=== PATIENT | male | born 1980 | race Caucasian/White ===

== ENCOUNTER 2017-01-25 09:44 | Emergency (ER) | payer MEDICAID ==
--- NOTE | 2017-01-25 10:08 | ED Physician Chart ---
Chief Complaint/HPI - Patient Information Date Seen:: 01/25/17 Time Seen:: 10:00 Chief Complaint:: left flank pain and substernal chest pain History of Present Illness:: Patient awoke about 0100 this morning with 10 out of 10 left flank pain and 8/ 10 pleuritic substernal chest pain. Pleuritic chest pain is sharp in nature and does not radiate. Patient denies dysuria, recent upper respiratory tract infection, cough, fever, vomiting, diarrhea. Patient states that his left flank pain is constant and is not relieved either by remaining still or moving around. Allergies:: Allergies Allergy/AdvReac Type Severity Reaction Status Date / Time No Known Allergies Allergy Verified 01/25/17 09:56 Historian:: Patient Review:: Nurse's Note Reviewed Review of Systems - Review of Systems General/Constitutional: No fever, No chills Skin: No skin lesions Head: No headache Eyes: No loss of vision ENT: No earache, No nasal drainage, No sore throat Neck: No neck pain, No swelling Cardio Vascular: Chest pain Pulmonary: No SOB, No cough GI: No nausea, No vomiting, No diarrhea G/U: No dysuria Musculoskeletal: No bone or joint pain Endocrine: No polyuria, No polydipsia Psychiatric: No prior psych history Hematopoietic: No bruising, No lymphadenopathy Allergic/Immuno: No urticaria, No angioedema Neurological: No syncope Family Medical History - Family Member Mother Ethnicity: Physical Exam - Physical Examination General/Constitutional: Well-developed, well-nourished, Alert Other Gen/Cons comments:: mild distress Head: Atraumatic Eyes: Lids, conjuctiva normal, PERRL Skin: Nl inspection, No rash, No skin lesions, No ecchymosis, Well hydrated, No lymphadenopathy ENMT: External ears, nose nl, TM canals nl, Nasal exam nl, Lips, teeth, gums nl Neck: No nuchal rigidity Respiratory: Nl effort/Exclusion, Clear to Auscultation, No Wheeze/Rhonchi/Rales Cardio Vascular: RRR, No murmur, gallop, rubs, NL S1 S2 GI: No tenderness/rebounding/guarding, No organomegaly, No hernia, Normal BS's, Nondistended, No mass/bruits, No McBurney tenderness : No CVA tenderness Other comments:: no flank tenderness Neuro/Psych: Alert/oriented, No focal deficits Misc: Normal back, No paraspinal tenderness Labs/Radiology/EKG Results - Lab Results Results: Urinalysis was negative - Radiology Results Results: Renal ultrasound showed dilation of the proximal left ureter - EKG Interpretations Rate & Rhythm: normal sinus rhythm with a rate of 79 Archer: normal axis Intervals: normal Assessment - Assessment General Assessment: Etiology of the patient's pleuritic substernal chest pain is uncertain but a cardiac etiology for the pain is extremely unlikely. Patient's left flank pain may be a small left ureteral calculus although against this diagnosis is a urinalysis which did not contain any blood. Patient instructed to take 2 over- the-counter ibuprofen 3 times a day with meals. ED Septic Shock - . Is Septic Shock (SBP<90, OR Lactate>4 mmol\L) present?: No Reassessment (Disposition) - Reassessment Reassessment:: At 1150 patient's pain had decreased to a 6 out of 10. Reassessment Condition:: Unchanged - Diagnosis Diagnosis:: Atypical chest pain; left ureteral calculus - Aftercare/Follow up Instructions Aftercare/Follow-Up Instructions:: Refer to Discharge Instructions - Patient Disposition Discharge/Transfer:: Home Condition at Disposition:: Stable, Improved
[2017-01-25 11:41] LABS: URINE BILIRUBIN NEGATIVE (NEGATIVE); URINE BLOOD NEGATIVE (NEGATIVE); URINE COLOR YELLOW; URINE GLUCOSE (UA) NEGATIVE (NEGATIVE); URINE KETONE NEGATIVE (NEGATIVE); URINE PH 7.5; URINE PROTEIN NEGATIVE (NEGATIVE); URINE UROBILINOGEN 0.2 E.U./dL (0.2 - 1.0)
[2017-01-25 11:47] LABS: URINE AMORPHOUS SEDIMENT MANY PHOSPHATES (NONE SEEN); URINE BACTERIA MODERATE /hpf (NONE SEEN); URINE EPITHELIAL CELLS RARE /lpf (FEW); URINE RBC NONE SEEN /hpf (0-5); URINE WBC NONE SEEN /hpf (0-5)
--- NOTE | 2017-01-25 12:46 | Diagnostic Imaging Report ---
Renal ultrasound HISTORY: Left flank pain. COMPARISON: None Technique: Sonography of the kidneys and urinary bladder was performed in multiple planes. FINDINGS: The right kidney measures 11.8 x 6.0 cm. No evidence of focal lesions or hydronephrosis. The left kidney measures 11.6 x 6.1 cm. There is a 1.1 cm echogenic focus along the lower pole. There is fullness of the left renal collecting system without javed hydronephrosis. The prevoid bladder volume was 69 mL's. Note patient was unable to void. Borderline prominent urinary bladder wall is noted. IMPRESSION: 1.1 cm echogenic focus of the left lower kidney. Findings may resent renal fat versus a small renal stone. CT would further clarify. Fullness of the left renal collecting system without evidence of javed hydronephrosis. The prevoid bladder volume was 69 mL. Note, patient refused to void during the exam. Borderline prominent urinary bladder wall, nonspecific and may be due to suboptimal distention. Please correlate with UA findings.
== END 2017-01-25 11:53 | disposition home or self-care (01) ==
LOC: ER 09:44
DX: N20.1 Calculus of ureter (principal); R07.89 Other chest pain
CPT/HCPCS: 99285; 76770; 96372; 93005; 81001; J1885